=== PATIENT | female | born 1975 | race African-American/Black ===

== ENCOUNTER → 2017-07-07 | Day surgery (SDC) | payer SELFPAY ==
[~2017-07-07] VITALS: Ht 172.7 cm; Wt 103.0 kg
[~2017-07-07] MED LIST: COMBIGAN EYE DRO5 ML OU; HAIR, SKIN & N1 EACH PO; LATANOPROST2.5 ML OU; LEVOTHYROXINE200 MC1 PO; VITAMIN B-1000 MCG/1 PO; VITAMIN D2000 UNIT PO
--- NOTE | 2017-07-07 18:29 | Operative Report ---
Operative/Inv Procedure Report Surgery Date: 07/07/17 Name of Procedure: Abdominoplasty liposuction trunk fat transfer to buttock Pre-Operative Diagnosis: Lipodystrophy Post-Operative Diagnosis: Lipodystrophy Estimated Blood Loss: scant (300) Surgeon/Public Address System Operator: Caleb Kuhn MD Anesthesia: general endotracheal tube Operative/Procedure Note Note: Patient was counseled extensively regards to the procedure the alternatives the risks and expected outcomes as relates to request for surgical intervention to treat lipodystrophy of the back anterior abdominal wall and buttock. She has requested a cosmetic abdominoplasty and cosmetic liposuction of the abdominal wall flap upper and lower back with fat transfer to the buttock. The patient was advised that approximately 50% of the fat will remain there is the risk of infection seroma hematoma draining sinuses asymmetries numbness skin irregularities in regards to the areas that are liposuctioned and the buttock fat transfer. We talked about the risks of abdominoplasty and the patient signed a SPS informed consents. She was marked in the standing position with the use of a measuring tape. She signed informed consent after additional discussion today. She was then taken to the operating room placed supine on the operating table. Venodyne boots are placed and then general anesthesia was established intravenous antibiotics were given. The abdomen was prepped and draped in usual sterile fashion. Abdominal wall flap was elevated and multiple layers of sutures were used for significant diastases repair. Sutures were also placed inferiorly and obliquely to provide further reduction of her significant laxity. She was put in the semi-Han's position and a 3 layer closure was carried out over drains. A small amount of liposuction was done at the ends of the incisions after placing tumescent fluid. She was then put into the prone position and appropriately padded. She was prepped and draped in usual sterile fashion. Betadine soaked gauze was placed in the buttock cleft. Small punctures were made to allow tumescent fluid to be instilled. This was a standard formulation. Proximally 5 L were placed in total. Approximately 1100 mL of drained of fat was removed at the completion of the process. He was then injected half into each buttock in the superficial plane of note the abdominal wall flap was suctioned on the back table. Wounds were closed in 2 layers. Compression was placed on the back and abdominal wall
== END ==
LOC: STS 01:29
DX: Z41.1 Encounter for cosmetic surgery (principal); E65 Localized adiposity; E03.9 Hypothyroidism, unspecified
CPT/HCPCS: C9399; J0131; J0171; J0690; J1100; J1885; J2001; J2250; J2405; Q9968